=== PATIENT | male | born 1990 | race Caucasian/White ===

== ENCOUNTER 2017-09-14 21:52 | Emergency (ER) | payer OTHER | END 2017-09-15 01:40 | disposition home or self-care (01) | LOC: FTE 21:52 | DX: S09.93XA Unspecified injury of face, initial encounter (principal); S19.9XXA Unspecified injury of neck, initial encounter; Y04.8XXA Assault by other bodily force, initial encounter | CPT/HCPCS: 99283; Z7502 ==